=== PATIENT | female | born 1945 | race Caucasian/White ===

== ENCOUNTER 2017-07-12 08:42 | Day surgery (SDC) | payer BC ==
[2017-07-07 14:44] VITALS: BMI 37.4
[2017-07-12] MEDS ORDERED: PROPOFOL 20 ML ONE ×2 (09:22)
[2017-07-12] MEDS ORDERED: LIDOCAINE HCL/PF 2% SDV 5ML VIAL ONE ×2 (09:22→09:23)
[2017-07-12 09:23] VITALS: TEMP 97.8
[2017-07-12 10:56] VITALS: BP 164/80; PULSE 48
--- NOTE | 2017-07-14 15:41 | PATH ---
Surgical Pathology Report Patient Name: MIGEL LARSEN [facility]. Rec. #: [id number] /Age/Gender: 1945 (Age: 72) / F Account: [id number] Location: [facility]-ENDOS[facility] Taken: 07/12/2017 Received: 07/12/2017 Reported: 07/14/2017 Physicians: David Tena M.D. Specimen(s) Received A: BX CECUM B: BX RIGHT COLON C: BX TRANSVERSE D: BX LEFT COLON E: BX SIGMOID F: BX RECTUM Clinical History Preoperative diagnosis: Ulcerative colitis Postoperative diagnosis: Rule out dysplasia Final Diagnosis A. CECUM, BIOPSY: COLONIC MUCOSA SHOWING BENIGN/REACTIVE LYMPHOID AGGREGATE. NEGATIVE FOR COLITIS AND DYSPLASIA. B. RIGHT COLON, BIOPSY: COLONIC MUCOSA SHOWING BENIGN/REACTIVE LYMPHOID AGGREGATE. NEGATIVE FOR COLITIS AND DYSPLASIA. C. TRANSVERSE, BIOPSY: COLONIC MUCOSA SHOWING BENIGN/REACTIVE LYMPHOID AGGREGATE. NEGATIVE FOR COLITIS AND DYSPLASIA. D. LEFT COLON, BIOPSY: COLONIC MUCOSA WITH NO SIGNIFICANT PATHOLOGIC FINDINGS. NEGATIVE FOR COLITIS AND DYSPLASIA. E. SIGMOID, BIOPSY: MILD CHRONIC ACTIVE COLITIS. NEGATIVE FOR DYSPLASIA. F. RECTUM, BIOPSY: MILD CHRONIC ACTIVE PROCTITIS. NEGATIVE FOR DYSPLASIA. Electronically Signed Jessica Benedict M.D. Gross Description A. Received in formalin, labeled "cecum" are 5 demarco, irregular portions of soft tissue ranging from 0.1-0.6 cm. in greatest dimension. The specimens are submitted in toto in one cassette. B. Received in formalin, labeled "right colon" are 4 demarco, irregular portions of soft tissue ranging from 0.2-0.5 cm. in greatest dimension. The specimens are submitted in toto in one cassette. C. Received in formalin, labeled "transverse" are 4 demarco, irregular portions of soft tissue ranging from 0.3-0.6 cm. in greatest dimension. The specimens are submitted in toto in one cassette. D. Received in formalin, labeled "left colon" are 4 demarco, irregular portions of soft tissue ranging from 0.2-0.4 cm. in greatest dimension. The specimens are submitted in toto in one cassette. E. Received in formalin, labeled "sigmoid" are 3 demarco, irregular portions of soft tissue ranging from 0.1-0.3 cm. in greatest dimension. The specimens are submitted in toto in one cassette. F. Received in formalin, labeled "rectum" are 6 demarco, irregular portions of soft tissue ranging from 0.2-0.4 cm. in greatest dimension. The specimens are submitted in toto in one cassette. 07/13/201707/13/2017
== END 2017-07-12 11:15 | disposition home or self-care (01) ==
LOC: FASU-ENDO 08:42
PROVIDERS: ATTEND Internal Medicine Gastroenterology
PROC: 0DBN8ZX Excision of Sigmoid Colon, Via Natural or Artificial Opening Endoscopic, Diagnostic (ICD-10-PCS; 2017-07-12)
PROC: 0DBP8ZX Excision of Rectum, Via Natural or Artificial Opening Endoscopic, Diagnostic (ICD-10-PCS; 2017-07-12)
PROC: 0DBM8ZX Excision of Descending Colon, Via Natural or Artificial Opening Endoscopic, Diagnostic (ICD-10-PCS; 2017-07-12)
PROC: 0DBH8ZX Excision of Cecum, Via Natural or Artificial Opening Endoscopic, Diagnostic (ICD-10-PCS; 2017-07-12)
PROC: 0DBK8ZX Excision of Ascending Colon, Via Natural or Artificial Opening Endoscopic, Diagnostic (ICD-10-PCS; principal; 2017-07-12 10:01)
PROC: 0DBL8ZX Excision of Transverse Colon, Via Natural or Artificial Opening Endoscopic, Diagnostic (ICD-10-PCS; 2017-07-12 10:01)
DX: K52.89 Other specified noninfective gastroenteritis and colitis (principal)
CPT/HCPCS: 82962